=== PATIENT | male | born 1945 | race Caucasian/White ===

== ENCOUNTER 2021-03-22 12:07 | Emergency (ER) | payer OTHER, MEDICAID, SELFPAY ==
--- NOTE | ~2021-03-22 | CT_ITS ---
EXAMINATION: CT BRAIN, CT CERVICAL SPINE AND CT FACIAL BONES CLINICAL INFORMATION: Fall with head injury on Eliquis. COMPARISON: None TECHNIQUE: 5 mm thin axial and reformatted 2 mm thin sagittal coronal images of brain were obtained without contrast. Axial 3 mm thin and reformatted 2 millimeter thin coronal and sagittal images of cervical spine were obtained. Lastly axial 1.5 minutes thin and reformatted 1.5 minutes thin sagittal and coronal images of facial bones were obtained. [facility] 2020 FINDINGS: Brain: There is no acute intra-axial, extra-axial bleed, masses or midline shift. There is no acute infarction evolution. There is no edema. The lateral ventricles are symmetrical in size and configuration without enlargement. Bone windows reveal no calvarial abnormality. There is a right frontal scalp contusion. Bilateral paranasal sinuses and mastoid air cells are well-aerated. Cervical spine: There is mild straightening of cervical lordosis. The vertebral heights and alignment is normal. There is loss of disc height with ventral and posterior spondylosis throughout cervical spine. The craniovertebral junction and the C1-C2 alignment is normal. Is no acute fracture, dislocation or subluxation seen. The lung apices are clear. The prevertebral and the paravertebral soft tissues are normal. Facial bones: The exam is limited secondary to patient motion. There is mucoperiosteal thickening right maxillary sinus. Rest the paranasal sinuses are well-aerated. The ostiomeatal complex and frontoethmoidal recesses are patent. No visible maxillofacial or nasal bone fracture seen however limited due to motion. Mild degenerative changes involving left hip joint is noted. The right TM joint is unremarkable. No mandibular fractures are identified. The maxillofacial, nasal soft tissues are normal. Bilateral optic globes, optic nerve, lamina papyracea and the cribriform plate are intact. The bony sinus enamorado are intact. CT/CT cervical spine wo con IMPRESSION: No acute intracranial process seen. No maxillofacial, nasal or mandibular fractures seen however limited due to patient motion. Chronic right maxillary sinus inflammatory changes. There is no acute fracture, dislocation or subluxation cervical spine. There are degenerative disc changes with spondylosis virtually at every disc level. No visible acute fracture, dislocation or subluxation seen.
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
--- NOTE | ~2021-03-22 | CT_ITS ---
EXAMINATION: CT BRAIN, CT CERVICAL SPINE AND CT FACIAL BONES CLINICAL INFORMATION: Fall with head injury on Eliquis. COMPARISON: None TECHNIQUE: 5 mm thin axial and reformatted 2 mm thin sagittal coronal images of brain were obtained without contrast. Axial 3 mm thin and reformatted 2 millimeter thin coronal and sagittal images of cervical spine were obtained. Lastly axial 1.5 minutes thin and reformatted 1.5 minutes thin sagittal and coronal images of facial bones were obtained. [facility] 2020 FINDINGS: Brain: There is no acute intra-axial, extra-axial bleed, masses or midline shift. There is no acute infarction evolution. There is no edema. The lateral ventricles are symmetrical in size and configuration without enlargement. Bone windows reveal no calvarial abnormality. There is a right frontal scalp contusion. Bilateral paranasal sinuses and mastoid air cells are well-aerated. Cervical spine: There is mild straightening of cervical lordosis. The vertebral heights and alignment is normal. There is loss of disc height with ventral and posterior spondylosis throughout cervical spine. The craniovertebral junction and the C1-C2 alignment is normal. Is no acute fracture, dislocation or subluxation seen. The lung apices are clear. The prevertebral and the paravertebral soft tissues are normal. Facial bones: The exam is limited secondary to patient motion. There is mucoperiosteal thickening right maxillary sinus. Rest the paranasal sinuses are well-aerated. The ostiomeatal complex and frontoethmoidal recesses are patent. No visible maxillofacial or nasal bone fracture seen however limited due to motion. Mild degenerative changes involving left hip joint is noted. The right TM joint is unremarkable. No mandibular fractures are identified. The maxillofacial, nasal soft tissues are normal. Bilateral optic globes, optic nerve, lamina papyracea and the cribriform plate are intact. The bony sinus enamorado are intact. CT/CT facial bones wo con IMPRESSION: No acute intracranial process seen. No maxillofacial, nasal or mandibular fractures seen however limited due to patient motion. Chronic right maxillary sinus inflammatory changes. There is no acute fracture, dislocation or subluxation cervical spine. There are degenerative disc changes with spondylosis virtually at every disc level. No visible acute fracture, dislocation or subluxation seen.
[2021-03-22 12:16] VITALS: BP 132/47; BP 140/60; PULSE 60; PULSE 68; RESP 18; TEMP 36.6; O2SAT 95; O2SAT 98; BMI 33.1
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
[2021-03-22 14:09] LABS: MANUAL DIFF FLAG NO
[2021-03-22 14:10] LABS: Basophils Absolute Auto 0.1 X10*3/uL (0.0-0.2); Basophils Percent Auto 0.6 % (0-2); Eosinophils Absolute Auto 0.1 X10*3/uL (0.0-0.4); Eosinophils Percent Auto 1.1 % (0-4); Hematocrit 38.2 % (42.0-52.0); Imm Gran Abs Auto 0.03 X10*3/uL (0.00-0.03); Imm Gran Pct Auto 0.3 % (0.0-0.4); Lymphocytes Absolute Auto 1.4 X10*3/uL (1.2-4.9); Mean Corpuscular HGB Conc 31.4 g/dl (31.0-36.0); Mean Corpuscular Hemoglobin 27.2 pg (27.0-33.0); Mean Corpuscular Volume 86.6 fL (80.0-98.0); Mean Platelet Volume 9.4 fL (9.4-12.4); Monocytes Absolute Auto 0.6 X10*3/uL (0.1-1.2); Monocytes Percent Auto 5.8 % (2-11); Neutrophils Absolute Auto 8.8 x10*3/uL (2.0-8.3); Neutrophils Percent Auto 79.2 % (45-73); Platelet Count 227 X10*3/uL (160-400); Red Blood Count 4.41 X10*6/uL (4.60-5.80)
[2021-03-22 14:15] LABS: INTERNATIONAL NORM RATIO 1.6 (0.9-1.1); Prothrombin Time 18.5 SEC (9.9-13.0)
[2021-03-22 14:18] LABS: Partial Thromboplastin Time 41.4 SEC (24.1-38.0)
[2021-03-22 14:57] VITALS: BP 126/84; PULSE 77; RESP 18; TEMP 35.3; O2SAT 96
== END 2021-03-22 16:01 | disposition home or self-care (01) ==
PROVIDERS: Physician Assistant Medical; Emergency Provider Emergency Medicine; PCP Family Medicine
DX: S09.90XA Unspecified injury of head, initial encounter (principal); G44.309 Post-traumatic headache, unspecified, not intractable; R29.700 NIHSS score 0; M54.2 Cervicalgia; W05.0XXA Fall from non-moving wheelchair, initial encounter; Y93.9 Activity, unspecified; Y92.122 Bedroom in nursing home as the place of occurrence of the external cause; Y99.9 Unspecified external cause status; Z79.4 Long term (current) use of insulin; Z79.899 Other long term (current) drug therapy
CPT/HCPCS: 36415; 70450; 70486; 72125; 85025; 85610; 85730; 99284

== ENCOUNTER 2021-04-20 19:19 | Emergency (ER) | payer OTHER, MEDICAID, SELFPAY ==
[2021-04-20 19:13] VITALS: BP 126/84; PULSE 80; RESP 15; TEMP 37; O2SAT 98; BMI 43.0
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
[2021-04-20 19:29] VITALS: BP 128/72; PULSE 70; O2SAT 97
[2021-04-20 19:36] VITALS: BP 113/42; PULSE 65; RESP 18; TEMP 37; O2SAT 97; BMI 38.9
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
== END 2021-04-20 23:44 | disposition home or self-care (01) ==
PROVIDERS: Emergency Provider Emergency Medicine
DX: F03.90 Unspecified dementia, unspecified severity, without behavioral disturbance, psychotic disturbance, mood disturbance, and anxiety (principal); T14.90XA Injury, unspecified, initial encounter; Y04.2XXA Assault by strike against or bumped into by another person, initial encounter; Y93.9 Activity, unspecified; Y92.099 Unspecified place in other non-institutional residence as the place of occurrence of the external cause; Y99.9 Unspecified external cause status
CPT/HCPCS: 99283

== ENCOUNTER 2022-12-29 22:02 | Inpatient (IN) | payer OTHER, MEDICAID, SELFPAY ==
--- NOTE | 2022-12-29 | ECG_ITS ---
Test Reason : CHEST PAIN Blood Pressure : / mmHG Vent. Rate : 070 BPM Atrial Rate : 070 BPM P-R Int : 190 ms QRS Dur : 100 ms QT Int : 396 ms P-R-T Axes : 053 -06 013 degrees QTc Int : 427 ms Sinus rhythm with occasional Premature ventricular complexes Low voltage QRS Abnormal ECG When compared with ECG of 11-JUL-2017 10:56, Premature ventricular complexes are now Present QRS axis Shifted left Nonspecific T wave abnormality no longer evident in Anterolateral leads Referred By: Generic ED Physician Electronically Signed By:ANA GIRON MD
--- NOTE | ~2022-12-29 | CT_ITS ---
EXAMINATION: CT ABDOMEN AND PELVIS WITHOUT CONTRAST CLINICAL INFORMATION: Pancreatic mass COMPARISON: None available. TECHNIQUE: Multidetector volumetric imaging was performed from the superior aspect of the liver through the pubic symphysis. Sagittal and coronal reformatted images were obtained on the technologist's workstation. This CT examination was performed using dose optimization techniques as appropriate, variously including the following: *Automated exposure control *Adjustment of mA and/or kV according to patient size (this includes techniques or standardized protocols for targeted exams where dose is matched to indication/reason for exam; i.e. extremities or head) *Use of iterative reconstruction technique DLP: 801 mGy-cm FINDINGS: Suboptimal assessment in some regions due to motion artifact. LUNG BASES: Partial visualization of patchy consolidation in the lingula. LIVER, GALLBLADDER, AND BILIARY TREE: Suboptimally assessed without intravenous contrast. There is heterogeneous, masslike enlargement of much of the right hepatic lobe and caudate measuring up to approximately 16 cm in the axial plane. Gallbladder is physiologically distended with gallstones noted. PANCREAS: Grossly unremarkable. SPLEEN: Mildly enlarged. ADRENAL GLANDS: Right adrenal gland is unremarkable. There is diffuse enlargement of the left adrenal gland measuring less than 10 Hounsfield units. Adrenal nodules of any size exhibiting a CT density of =<10 HU are overwhelmingly likely to represent lipid rich benign adenomas for which no followup imaging is recommended. KIDNEYS AND URETERS: No hydronephrosis or obstructing calculi bilaterally. Several bilateral renal cysts; no follow-up recommended. Nonspecific bilateral perinephric stranding. BLADDER: Collapsed and not adequately evaluated. GASTROINTESTINAL TRACT: No evidence of bowel obstruction or significant wall thickening. Colonic diverticulosis is noted. No free fluid or free air is seen. ABDOMINAL WALL: No significant hernia is appreciated. LYMPH NODES: Normal. VASCULAR: Moderate atherosclerotic calcification. PELVIC VISCERA: Unremarkable. OSSEOUS STRUCTURES: Multilevel degenerative changes in the spine. CT/CT abdomen pelvis wo IV con IMPRESSION: 1. Heterogeneous, masslike enlargement of much of the right hepatic lobe and caudate lobe, suspicious for neoplasm. Further workup with dynamic liver MRI is recommended. 2. Partial visualization of patchy consolidation in the lingula, which could reflect pneumonia in the proper clinical setting. 3. Cholelithiasis.
--- NOTE | ~2022-12-29 | XR_ITS ---
EXAMINATION: XR CHEST CLINICAL INFORMATION: Shortness of breath COMPARISON: 07/11/2017 TECHNIQUE: Frontal view of the chest was obtained. FINDINGS: The lungs are hypoinflated which limits evaluation. Mild bibasilar opacities are suspected in this setting along the bronchovascular crowding. No evidence of pneumothorax or definite pleural effusion. The cardiomediastinal silhouette is stable. Calcification is present at the aortic arch. No acute osseous findings are seen. XR/XR chest 1V IMPRESSION: Low lung volumes with suspected mild bibasilar opacities which may represent atelectasis versus developing consolidation along the bronchovascular crowding.
[2022-12-29 22:05] VITALS: BP 96/38; PULSE 73; O2SAT 100; BMI 31.0
[2022-12-29 22:15] VITALS: BP 104/46; PULSE 66; RESP 20; TEMP 36.6; O2SAT 99
--- NOTE | 2022-12-29 22:23 | ED_ITS ---
HPI - Altered Mental Status General Chief Complaint: Altered Mental Status Stated Complaint: AMS FROM SNF Time Seen by Provider: 12/29/22 22:09 Source: EMS and RN notes reviewed Mode of arrival: EMS Limitations: altered mental status History of Present Illness HPI narrative: Patients with history of significant dementia brought by EMS for episode of unresponsiveness patient was in bed became unresponsive blood pressure was low was 72/56 pulse rate 111 saturating 83% on room air 88 on 2 L temperature 98.6 degrees per RN patient had poor p.o. intake and not taking drinking enough fluids feeling very weak urine sample just collected prior to arrival was cloudy. During the episode of unresponsive the patient was profusely sweating and difficult to arouse blood sugar was 366 when arrived patient complain of chest pain but at this time on evaluation denies any pain no recent fall no cough or fever Related Data Allergies Allergy/AdvReac Type Severity Reaction Status Date / Time No Known Allergies Allergy Unverified 10/25/19 19:30 [No Known Allergies*] Review of Systems 2 Review of Systems: Yes all other systems are reviewed and are negative FOR[facility]LY [facility] Past Medical History Medical History (Updated 12/30/22 @ 01:49 by Gilmer Tillman MD) Hypertension Iron deficiency anemia CKD (chronic kidney disease) Obstructive sleep apnea Dementia Social History Alcohol intake: never Patient Tobacco Use Status: Never used Tobacco Advance Directives: Yes Advance Directives on File: Yes Advance Directives Date on File: 03/23/21 Nutrition Risks: No Nutritional Risk Physical Exam ED Vital Signs: Vital Signs - 24 hr 12/29/22 22:15 12/29/22 22:54 12/29/22 23:55 Temperature 97.9 F 97.6 F 98.7 F Pulse Rate 66 70 72 Respiratory Rate 20 17 Blood Pressure 104/46 L 106/53 L 107/39 L Pulse Oximetry 99 95 96 Oxygen Delivery Method Non-Rebreather Mask Room Air Room Air BMI result Body Mass Index 31.0 Appearance: Alert. And awakex 1-2. No acute distress. Eyes: PERRLA, No Nystagmus ENT: Pharynx normal. Oral Mucosa moist Neck: Normal inspection. Neck supple. CVS: Normal heart rate and rhythm. Pulses normal. Respiratory: No respiratory distress. Equal air entry bilateral, no wheezing/rales/rhonchi Abdomen: Soft and nontender. Bowel sounds are present, no mass palpable, no CVA tenderness Skin: Skin warm and dry. Normal skin color. Normal skin turgor. Extremities: No lower extremity edema. No calf tenderness Neuro: Oriented X 1-2. Moving all 4 extremities Medications Administered Generic Name Dose Route Start Last Admin Trade Name Freq PRN Reason Stop Dose Admin Piperacillin Sod/Tazobactam 50 mls @ 100 mls/hr 12/30/22 00:15 12/30/22 01:21 Sod 3.375 gm/ Sodium Chloride IV Infused 0000,0600,1200,1800 [place] Infusion Discontinued Medications Generic Name Dose Route Start Last Admin Trade Name Freq PRN Reason Stop Dose Admin Sodium Chloride 1,000 mls @ 999 mls/hr 12/29/22 22:14 12/29/22 23:25 Ns IV 12/29/22 23:14 Infused .Q1H1M ONE Infusion Ceftriaxone Sodium 1 gm/ 50 mls @ 100 mls/hr 12/29/22 23:02 12/30/22 00:38 Sodium Chloride IV 12/29/22 23:31 Infused ONCE ONE Infusion Lactated Ringer's 500 mls @ 999 mls/hr 12/30/22 00:30 12/30/22 02:18 Lr IV 12/30/22 01:30 Infused .Q31M [place] Infusion Vancomycin HCl 2,000 mg in 500 mls @ 250 mls/hr 12/30/22 00:30 12/30/22 01:12 Vancomycin/Ns IV 12/30/22 02:29 250 mls/hr ONCE ONE Administration Protocol Medical Decision Making Medical Decision Making MDM Narrative: Patients with history of significant dementia brought by EMS for episode of unresponsiveness patient was in bed became unresponsive blood pressure was low was 72/56 pulse rate 111 saturating 83% on room air 88 on 2 L temperature 98.6 degrees per RN patient had poor p.o. intake and not taking drinking enough fluids feeling very weak urine sample just collected prior to arrival was cloudy. Workup showed elevated WBC count to 21,000 with left shift with hemoglobin of 9 elevated liver function tests with elevated alkaline phosphatase elevated BUN creatinine and lactic acid level lipase was also elevated patient did not have any significant palpable tenderness in the abdomen does have UTI CT scan of the abdomen showed hepatic mass about 16 cm will admit the patient for further evaluation workup patient DNR DNI vitals are stable at this time patient meeting the criteria for sepsis was given IV fluids and antibiotics Differential Diagnosis Differential Diagnoses: The differential diagnosis associated with the presentation includes Pneumonia/CHF/pancreatic cancer/pancreatitis/hepatic cancer/COVID/GAMA/UTI Admission/Observation Consideration of admission/observation: Escalation of care including admission/observation considered Consult Healthcare Provider Management of the patient was discussed with: Hospitalist Lab Data MDM Lab Attestation statement: I reviewed the patient's lab results. 12/29/22 22:23 12/29/22 22:23 Labs: Lab Results 12/29/22 12/29/22 12/29/22 Range/Units 22:23 22:36 22:52 WBC 21.4 H (4.8-10.8) X10*3/uL RBC 3.30 L D (4.60-5.80) X10*6/uL Hgb 9.0 L D (14.0-18.0) g/dl Hct 28.1 L D (42.0-52.0) % MCV 85.2 (80.0-98.0) fL MCH 27.3 (27.0-33.0) pg MCHC 32.0 (31.0-36.0) g/dl RDW 16.9 H (11.0-16.0) % Plt Count 207 (160-400) X10*3/uL MPV 10.2 (9.4-12.4) fL Immature Gran % (Auto) 1.0 H (0.0-0.4) % Neut % (Auto) 94.9 H (45-73) % Lymph % (Auto) 0.9 L (20-40) % [place] % (Auto) 3.1 (2-11) % Eos % (Auto) 0.0 (0-4) % Baso % (Auto) 0.1 (0-2) % Lymph # (Auto) 0.2 L (1.2-4.9) X10*3/uL [place] # (Auto) 0.7 (0.1-1.2) X10*3/uL Eos # (Auto) 0.0 (0.0-0.4) X10*3/uL Baso # (Auto) 0.0 (0.0-0.2) X10*3/uL Abs Immat Gran (auto) 0.21 H (0.00-0.03) X10*3/uL Absolute Neuts (auto) 20.4 H (2.0-8.3) x10*3/uL Absolute Nucleated RBC 0.000 (0.0-0.012) X10*3/uL Nucleated RBC % (auto) 0.0 (0.0-0.2) /100WBC Smear Tech's Comments VERIFIED D-Dimer High Sensitivty 849 NG/ML Sodium 140 (135-145) mmol/L Potassium 4.8 (3.3-5.1) mmol/L Chloride 104 (96-108) mmol/L Carbon Dioxide 23 (22-29) mmol/L Anion Gap 18 (12-20) BUN 61 H (9-16) mg/dL Creatinine 2.93 H (0.5-1.4) mg/dL Estim Creat Clear Calc 23.2 Estimated GFR 21 Random Glucose 329 H (60-115) mg/dL Lactic Acid 2.1 H* (0.5-2.0) mmol/L Calcium 9.6 (8.4-10.2) mg/dL Total Bilirubin 3.1 H (0.0-1.0) mg/dL AST 206 H (5-37) U/L ALT 99 H (0-40) U/L Alkaline Phosphatase 911 H (39-117) U/L Troponin I High Sens 27.6 (<3.5-35.0) ng/L B-Natriuretic Peptide 644 H (<100) pg/mL Total Protein 7.1 (6.5-8.0) g/dL Albumin 3.5 (3.5-5.0) g/dL Lipase 318 H (8-78) U/L Urine Color Yellow Urine Appearance Turbid Urine pH 6.0 (5.0-9.0) Ur Specific Boss 1.025 (1.005-1.025) Urine Protein 300 (3+) H (Neg-Trace) mg/dL Urine Glucose (UA) 100 H (Negative) mg/dL Urine Ketones Trace (Negative) mg/dL Urine Blood Moderate (2+) H (Negative) Urine Nitrite Positive H (Negative) Ur Leukocyte Esterase Large (3+) H (Negative) Urine RBC 11-20 H (0-2) /HPF Urine WBC >50 (0-5) /HPF Ur Squamous Epith Cells 3-5 (0-2) /HPF Urine Bacteria 4+ (None Seen) Hyaline Casts 3-5 (0-2) /LPF Independent Interpretation I performed an independent interpretation of an: EKG and CT Scan Interpretation: Normal sinus rhythm heart rate 70 beats per minute with occasional PVCs Q-waves in inferior leads no acute ST-T changes no acute ischemia Radiology Impression Discussion of test interpretation with radiology: I have reviewed the radiologist's reading. Radiologist Impression: [address] [address] [address] Scan Report Signed Patient: Meng Chilel MR#: [id number] : 1945 Acct:[id number] Age/Sex: 77 / M ADM Date: 12/30/22 [facility]: Willam Jensen MD Ordering Physician: Gilmer Tillman MD Date of Service: 12/29/22 Procedure(s): CT abdomen pelvis wo IV con Accession Number(s): [id number] cc: Physician,Unknown ; Gilmer Tillman MD~ EXAMINATION: CT ABDOMEN AND PELVIS WITHOUT CONTRAST CLINICAL INFORMATION: Pancreatic mass COMPARISON: None available. TECHNIQUE: Multidetector volumetric imaging was performed from the superior aspect of the liver through the pubic symphysis. Sagittal and coronal reformatted images were obtained on the technologist's workstation. This CT examination was performed using dose optimization techniques as appropriate, variously including the following: *Automated exposure control *Adjustment of mA and/or kV according to patient size (this includes techniques or standardized protocols for targeted exams where dose is matched to indication/reason for exam; i.e. extremities or head) *Use of iterative reconstruction technique DLP: 801 mGy-cm FINDINGS: Suboptimal assessment in some regions due to motion artifact. LUNG BASES: Partial visualization of patchy consolidation in the lingula. LIVER, GALLBLADDER, AND BILIARY TREE: Suboptimally assessed without intravenous contrast. There is heterogeneous, masslike enlargement of much of the right hepatic lobe and caudate measuring up to approximately 16 cm in the axial plane. Gallbladder is physiologically distended with gallstones noted. PANCREAS: Grossly unremarkable. SPLEEN: Mildly enlarged. ADRENAL GLANDS: Right adrenal gland is unremarkable. There is diffuse enlargement of the left adrenal gland measuring less than 10 Hounsfield units. Adrenal nodules of any size exhibiting a CT density of =<10 HU are overwhelmingly likely to represent lipid rich benign adenomas for which no followup imaging is recommended. KIDNEYS AND URETERS: No hydronephrosis or obstructing calculi bilaterally. Several bilateral renal cysts; no follow-up recommended. Nonspecific bilateral perinephric stranding. BLADDER: Collapsed and not adequately evaluated. GASTROINTESTINAL TRACT: No evidence of bowel obstruction or significant wall thickening. Colonic diverticulosis is noted. No free fluid or free air is seen. ABDOMINAL WALL: No significant hernia is appreciated. LYMPH NODES: Normal. VASCULAR: Moderate atherosclerotic calcification. PELVIC VISCERA: Unremarkable. OSSEOUS STRUCTURES: Multilevel degenerative changes in the spine. CT/CT abdomen pelvis wo IV con IMPRESSION: 1. Heterogeneous, masslike enlargement of much of the right hepatic lobe and caudate lobe, suspicious for neoplasm. Further workup with dynamic liver MRI is recommended. 2. Partial visualization of patchy consolidation in the lingula, which could reflect pneumonia in the proper clinical setting. 3. Cholelithiasis. Critical Care Time Critical Care Time Critical Care Time: Yes Total Critical Care Time: 55 Attestation: The patient was critically ill with a high probability of imminent or life threatening deterioration. I spent greater than 60 minutes of discontinuous time evaluating the patient,delivering critical care at the bedside, discussing and evaluating pertinent data with consultants. Critical care time does not include time spent performing separately billable procedures or teaching. Total time spent performing critical care was 55 minutes. Discharge Plan Discharge Clinical Impression: Altered mental status, Sepsis, Acute renal failure superimposed on chronic kidney disease, Hepatic cancer, Acute UTI Patient Disposition: Admitted As Inpatient Interventions: Admission Worksheet (ED) Last Done: 12/30/22 02:18 Discharge Date/Time: 12/30/22 02:29
[2022-12-29 22:28] LABS: Basophils Percent Auto 0.1 % (0-2); Hematocrit 28.1 % (42.0-52.0); Imm Gran Abs Auto 0.21 X10*3/uL (0.00-0.03); Lymphocytes Absolute Auto 0.2 X10*3/uL (1.2-4.9); Lymphocytes Percent Auto 0.9 % (20-40); MANUAL DIFF FLAG SCAN; Mean Corpuscular Hemoglobin 27.3 pg (27.0-33.0); Mean Corpuscular Volume 85.2 fL (80.0-98.0); Mean Platelet Volume 10.2 fL (9.4-12.4); Monocytes Absolute Auto 0.7 X10*3/uL (0.1-1.2); Monocytes Percent Auto 3.1 % (2-11); Neutrophils Absolute Auto 20.4 x10*3/uL (2.0-8.3); Neutrophils Percent Auto 94.9 % (45-73); Platelet Count 207 X10*3/uL (160-400); Red Cell Distribution Width 16.9 % (11.0-16.0); SCAN SMEAR FLAG 1; White Blood Count 21.4 X10*3/uL (4.8-10.8)
[2022-12-29] MEDS: 0.9 % Sodium Chloride 1,000 ML 999 ML IV (22:30)
[2022-12-29 22:43] LABS: Alanine Aminotransferase 99 U/L (0-40); Albumin Level 3.5 g/dL (3.5-5.0); Alkaline Phosphatase 911 U/L (39-117); Anion Gap 18 (12-20); Aspartate Amino Transferase 206 U/L (5-37); Bilirubin Total 3.1 mg/dL (0.0-1.0); Blood Urea Nitrogen 61 mg/dL (9-16); Calcium 9.6 mg/dL (8.4-10.2); Carbon Dioxide 23 mmol/L (22-29); Chloride 104 mmol/L (96-108); Creatinine Clr Calc Pharmacy 23.2; Estimated Glomerular Filt Rate 21; Glucose Random 329 mg/dL (60-115); Potassium 4.8 mmol/L (3.3-5.1); Sodium 140 mmol/L (135-145); Total Protein 7.1 g/dL (6.5-8.0)
[2022-12-29 22:48] LABS: SLIDE REVIEW VERIFIED
[2022-12-29 22:49] LABS: B Type Natriuretic Peptide 644 pg/mL (<100); Troponin-I High Sensitivity 27.6 ng/L (<3.5-35.0)
[2022-12-29 22:50] LABS: D Dimer High Sensitivity 849 NG/ML
[2022-12-29 22:54] VITALS: BP 106/53; PULSE 70; TEMP 36.4; O2SAT 95
[2022-12-29 22:54] LABS: Lactic Acid 2.1 mmol/L (0.5-2.0)
[2022-12-29 23:06] LABS: Appearance Urine Turbid; Color Urine Yellow; Glucose Urine UA 100 mg/dL (Negative); Nitrite Urine Positive (Negative); Specific Gravity - Urine 1.025 (1.005-1.025); UMIC TRIGGER UACC YES; Urine Blood Moderate (2+) (Negative); Urine Ketones Trace mg/dL (Negative); Urine Protein 300 (3+) mg/dL (Neg-Trace)
[2022-12-29 23:07] LABS: Leukocyte Esterase Urine Large (3+) (Negative)
--- NOTE | 2022-12-29 23:24 | PC.NURSE ---
awaiting second set of cultures to be drawn to administer antibiotics
[2022-12-29 23:31] LABS: Bacteria Urine 4+ (None Seen); UACC Culture Trigger YES; WBC Urine >50 /HPF (0-5)
[2022-12-29] MEDS: cefTRIAXone sodium 1 GM in 0.9 % Sodium Chloride 50 ML IV (23:53)
[2022-12-29 23:55] VITALS: BP 107/39; PULSE 72; RESP 17; TEMP 37.1; O2SAT 96
[2022-12-30] VITALS (9 sets, daily range): BP systolic 87–131; BP diastolic 37–59; PULSE 55–116; RESP 16–178; TEMP 36.1–36.8; O2SAT 95–98
[2022-12-30 00:04] LABS: Lipase 318 U/L (8-78)
[2022-12-30] MEDS: Piperacillin Sodium/Tazobactam 3.375 GM in 0.9 % Sodium Chloride 50 ML IV ×4 (00:36→17:40)
[2022-12-30 00:40] LABS: Reflex Lactate? Lactic Acid Added
[2022-12-30] MEDS: Lactated Ringers 500 ML 999 ML IV ×2 (00:51→01:34)
[2022-12-30] MEDS: vancomycin/NS 2,000 MG/500 ML PLAST..BAG 250 MG IV (01:12)
[2022-12-30 01:39] LABS: ~Lactic Acid-LAB USE ONLY 2.7 mmol/L (0.5-2.0)
[2022-12-30 01:51] LABS: Cancel Lactic Acid Canceled
--- NOTE | 2022-12-30 02:22 | MHC.EDTECH ---
Patient has no belongings
--- NOTE | 2022-12-30 06:17 | P.HPHOSP_ITS ---
History of Present Illness Date of Service: 12/30/22 Chief Complaint: altered mental status this is a 77-year-old male past medical history of hypertension, CKD, history of GI bleed, iron deficiency anemia, obstructive sleep apnea, dementia, comes into the hospital from shelter with an episode of unresponsiveness. History is obtained mostly from ER physician as well as notes sent with the patient from the shelter according to the notes sent in with the patient patient was found to have a low BP of 72/56 with a heart rate of 111, satting 83% on room air. Been having poor p.o. intake, unable to ambulate, has become significantly weak. unable to obtain review of system from patient on arrival to the ED patient is hemodynamically stable with a slightly soft blood pressure Labs are significant for WBC count of 21.4, hemoglobin of 9.0, hematocrit 28.1, left shift, creatinine of 2.93, lactic acid of 2.1, AST of 2 6, ALT of 99, troponin of 27, BNP of 644, lipase of 318 with no previous for comparison UA is positive for nitrites, leukocyte Estrace, WBC as well as urine bacteria Abdominal pelvic CT shows heterogeneous masslike enlargement of much of the right hepatic lobe and caudate lobe of the liver suspicious for neoplasm as well as evidence of consolidation in the lung which could reflect pneumonia. Patient will be admitted for further management Review of Systems 2 Review of Systems: Yes all other systems are reviewed and are negative [facility] Medical History Hypertension Iron deficiency anemia CKD (chronic kidney disease) Obstructive sleep apnea Dementia Alcohol intake: never Patient Tobacco Use Status: Never used Tobacco Advance Directives: Yes Advance Directives on File: Yes Advance Directives Date on File: 03/23/21 Nutrition Risks: No Nutritional Risk Meds Allergies Allergy/AdvReac Type Severity Reaction Status Date / Time No Known Allergies Allergy Unverified 10/25/19 19:30 [No Known Allergies*] Active Medications: Current Medications Acetaminophen (Acetaminophen 325 Mg Tablet) 650 mg PO Q6H PRN PRN Reason: Pain, Mild (Pain Scale 1-3) Docusate Sodium (Docusate Sodium 100 Mg Capsule) 100 mg PO DAILY PRN PRN Reason: Constipation Heparin Sodium (Porcine) (Heparin Sodium,Porcine 5,000 Unit/Ml Vial) 5,000 unit SUBCUT Q12H [facility] Ceftriaxone Sodium 1 gm/ (Sodium Chloride) 50 mls @ 100 mls/hr IV Q24H [facility] Piperacillin Sod/Tazobactam (Sod 3.375 gm/ Sodium Chloride) 50 mls @ 100 mls/hr IV 0000,0600,1200,1800 [facility] Last Infusion: 12/30/22 01:21 Dose: Infused Ondansetron HCl (Ondansetron Hcl 4 Mg/2 Ml Vial) 4 mg IVPUSH Q8H PRN PRN Reason: Nausea and Vomiting Pharmacy Consult (Consult Rx Vancomycin Dosing) 1 each MISCELLANE DAILY PRN PRN Reason: Consult order Physical Exam 2 Vital Signs and Narrative: Vital Signs: Last Vital Signs Temp 97.0 F 12/30/22 02:56 Pulse 90 12/30/22 03:37 Resp 19 12/30/22 02:56 BP 91/47 L 12/30/22 03:04 Pulse Ox 96 12/30/22 02:56 O2 Del Method Room Air 12/30/22 02:56 BMI result Body Mass Index 31.0 Const: Other: patient is somnolent but arousable, does not answer questions appropriately, is not oriented to time or place General: no acute distress Eyes: General: appearance normal, both eyes and all related structures Resp: Effort & Inspection: normal respiratory effort Cardio: Rate: regular rate Rhythm: regular rhythm GI: Palpation (GI): Soft to palpation Auscultation: normal bowel sounds Skin: General skin exam: no rashes or lesions noted Extrem: General: Yes normal to inspection and Yes no pedal edema Results Labs 12/29/22 22:23 12/29/22 22:23 Labs: Laboratory Results - last 24 hr 12/29/22 12/29/22 12/29/22 22:23 22:36 22:52 MCV 85.2 MCH 27.3 MCHC 32.0 RDW 16.9 H Plt Count 207 MPV 10.2 Immature Gran % (Auto) 1.0 H Neut % (Auto) 94.9 H Lymph % (Auto) 0.9 L [place] % (Auto) 3.1 Eos % (Auto) 0.0 Baso % (Auto) 0.1 Lymph # (Auto) 0.2 L [place] # (Auto) 0.7 Eos # (Auto) 0.0 Baso # (Auto) 0.0 Abs Immat Gran (auto) 0.21 H Absolute Neuts (auto) 20.4 H Absolute Nucleated RBC 0.000 Nucleated RBC % (auto) 0.0 Smear Tech's Comments VERIFIED D-Dimer High Sensitivty 849 Anion Gap 18 Estim Creat Clear Calc 23.2 Estimated GFR 21 Random Glucose 329 H Lactic Acid 2.1 H* Lactic Acid F/U @ 2Hr Calcium 9.6 Total Bilirubin 3.1 H AST 206 H ALT 99 H Alkaline Phosphatase 911 H B-Natriuretic Peptide 644 H Total Protein 7.1 Albumin 3.5 Lipase 318 H Urine Color Yellow Urine Appearance Turbid Urine pH 6.0 Ur Specific [place] 1.025 Urine Protein 300 (3+) H Urine Glucose (UA) 100 H Urine Ketones Trace Urine Blood Moderate (2+) H Urine Nitrite Positive H Ur Leukocyte Esterase Large (3+) H Urine RBC 11-20 H Urine WBC >50 Ur Squamous Epith Cells 3-5 Urine Bacteria 4+ Hyaline Casts 3-5 12/30/22 01:04 MCV MCH MCHC RDW Plt Count MPV Immature Gran % (Auto) Neut % (Auto) Lymph % (Auto) [place] % (Auto) Eos % (Auto) Baso % (Auto) Lymph # (Auto) [place] # (Auto) Eos # (Auto) Baso # (Auto) Abs Immat Gran (auto) Absolute Neuts (auto) Absolute Nucleated RBC Nucleated RBC % (auto) Smear Tech's Comments D-Dimer High Sensitivty Anion Gap Estim Creat Clear Calc Estimated GFR Random Glucose Lactic Acid Lactic Acid F/U @ 2Hr 2.7 H* Calcium Total Bilirubin AST ALT Alkaline Phosphatase B-Natriuretic Peptide Total Protein Albumin Lipase Urine Color Urine Appearance Urine pH Ur Specific [place] Urine Protein Urine Glucose (UA) Urine Ketones Urine Blood Urine Nitrite Ur Leukocyte Esterase Urine RBC Urine WBC Ur Squamous Epith Cells Urine Bacteria Hyaline Casts Imaging Radiologist's Impressions: Impressions Chest X-Ray 12/29/22 22:35 IMPRESSION: Low lung volumes with suspected mild bibasilar opacities which may represent atelectasis versus developing consolidation along the bronchovascular crowding. Abdomen/Pelvis CT 12/29/22 23:39 IMPRESSION: 1. Heterogeneous, masslike enlargement of much of the right hepatic lobe and caudate lobe, suspicious for neoplasm. Further workup with dynamic liver MRI is recommended. 2. Partial visualization of patchy consolidation in the lingula, which could reflect pneumonia in the proper clinical setting. 3. Cholelithiasis. Assessment and Plan (1) Acute encephalopathy: Status: Acute (2) Acute UTI: Status: Acute (3) Sepsis: Qualifiers: Sepsis type: sepsis due to unspecified organism Sepsis acute organ dysfunction status: without acute organ dysfunction Qualified Code(s): A41.9 - Sepsis, unspecified organism Status: Acute (4) Hepatic cancer: Qualifiers: Liver malignancy type: hepatocellular carcinoma Qualified Code(s): C 22.0 - Liver cell carcinoma Status: Acute Plan this is a 77-year-old male with past medical history of CKD- unspecified, DILLON, history of GI bleed, hypertension, as well as dementia comes into the hospital from shelter with altered mental status and hypotension # acute encephalopathy - likely secondary to acute sepsis due to acute UTI - will treat with IV antibiotics, IV fluids - monitor mentation # sepsis - secondary to acute UTI versus pneumonia - has consolidation seen on the abdominal CT as well as a UTI - will treat with IV antibiotics - follow cultures # acute cystitis - positive UA - will treat with IV antibiotics - follow cultures # transaminitis - likely secondary to the liver mass seen on the CT of the abdomen - concerning for malignancy - GI consulted - follow LFTs # hepatic mass - malignant - GI consulted DVT prophylaxis: heparin subQ Given patient's encephalopathy as well as sepsis patient require minimum 2 nights inpatient hospital stay for management and monitoring Quality Stroke Does the patient have a stroke diagnosis?: No VTE Prior VTE?: No VTE Risk Level:: Medical - moderate - high VTE Device Contraindication: Treatment Not Indicated VTE Drug Contraindication: N/A - Med Ordered
[2022-12-30 06:29] LABS: Glucose, Whole Blood 161 mg/dL (60-115)
[2022-12-30 07:29] LABS: Basophils Percent Auto 0.2 % (0-2); Hematocrit 28.9 % (42.0-52.0); Imm Gran Abs Auto 0.11 X10*3/uL (0.00-0.03); Imm Gran Pct Auto 0.6 % (0.0-0.4); Lymphocytes Absolute Auto 0.5 X10*3/uL (1.2-4.9); Lymphocytes Percent Auto 2.6 % (20-40); MANUAL DIFF FLAG SCAN; Mean Corpuscular HGB Conc 31.1 g/dl (31.0-36.0); Mean Corpuscular Hemoglobin 27.5 pg (27.0-33.0); Mean Corpuscular Volume 88.4 fL (80.0-98.0); Mean Platelet Volume 10.8 fL (9.4-12.4); Monocytes Absolute Auto 0.5 X10*3/uL (0.1-1.2); Monocytes Percent Auto 2.8 % (2-11); Neutrophils Absolute Auto 17.2 x10*3/uL (2.0-8.3); Neutrophils Percent Auto 93.8 % (45-73); Platelet Count 201 X10*3/uL (160-400); Red Blood Count 3.27 X10*6/uL (4.60-5.80); Red Cell Distribution Width 17.2 % (11.0-16.0); SCAN SMEAR FLAG 1; White Blood Count 18.4 X10*3/uL (4.8-10.8)
[2022-12-30 07:46] LABS: Alanine Aminotransferase 106 U/L (0-40); Albumin Level 3.2 g/dL (3.5-5.0); Alkaline Phosphatase 759 U/L (39-117); Anion Gap 16 (12-20); Aspartate Amino Transferase 196 U/L (5-37); Bilirubin Total 2.9 mg/dL (0.0-1.0); Blood Urea Nitrogen 57 mg/dL (9-16); Calcium 9.2 mg/dL (8.4-10.2); Carbon Dioxide 23 mmol/L (22-29); Chloride 107 mmol/L (96-108); Creatinine Clr Calc Pharmacy 26.1; Estimated Glomerular Filt Rate 24; Glucose Random 180 mg/dL (60-115); Sodium 141 mmol/L (135-145); Total Protein 6.5 g/dL (6.5-8.0)
--- NOTE | 2022-12-30 07:53 | PC.NURSE ---
pt arrived to unit from ED with vancomycin infusing, infusion not completed. IV positional and became agitated and threatening to strike nurse. several attempts made for new IV insertion without success. aware.
--- NOTE | 2022-12-30 08:15 | PHA.MEDREC ---
Pharmacy Consult ? Medication Reconciliation Pharmacy has completed the medication reconciliation. Spoke to patient at bedside, he was very confused. I asked if I could name medications from claim history and every med he kept telling me no. Then said he takes what his doctor says and that they send him to him and he takes them. Did med rec based on recent claim history, fills are all consistent.
[2022-12-30 08:22] LABS: SLIDE REVIEW VERIFIED
[2022-12-30] MEDS: Heparin Sodium,Porcine 5,000 UNIT/ML VIAL 5000 UNIT SUBCUT ×2 (08:38→20:24)
[2022-12-30] MEDS: Lactated Ringers 1,000 ML 100 ML IVCONT (08:40)
--- NOTE | 2022-12-30 08:50 | PHA.PROG ---
Admission Date/Time: December 30, 2022 00:12 Indication: SEPSIS Weight in k.7 kg Adjusted body weight in K.54 [place] body weight in K.1 Obesity Dosing Indication % IBW: BMI 31.0 Serum Creatinine - Last 168 Hours 12/29/22 12/30/22 22: 07:06 Creatinine 2.93 H 2.61 H Estimated CrCl and GFR - Last 168 Hours 12/29/22 12/30/22 22: 07:06 Estim Creat Clear Calc 23.2 26.1 Estimated GFR 21 24 Vancomycin Loading Dose: 2000 MG Current Vancomycin Dosing Regimen: 500 Q24 Vancomycin Monitoring using AUC goal of 400 - 600 range with trough as surrogate marker: AUC 379 WITH TROUGH OF 13.5 Date and Time for next Vancomycin Level to be drawn: 12/31 @0600 Pharmacist Comments on Vancomycin Plan: LOAD OF 22.2 MG/KG GIVEN IN ED. PT IS OBESE, >65 YEARS OLD, AND HAS CKD WITH CURRENT SCR 2.61. PLAN AT THIS TIME TO MOVE CAUTIOUSLY AND CHECK VANCO LEVEL BEFORE NEXT DOSE THERE IS NOT ANY PLAN FOR DIALYSIS BUT RENAL FUNCTION COULD DECLINE WITH VANCO USE. Vancomycin dosing will take advantage of [employer] as a clinical decision support tool that uses Bayesian modeling to calculate individual patient's pharmacokinetic parameters and forecast the patient's drug concentration time course with the target goal AUC 24 range of 400 - 600 mg/L/hr.
--- NOTE | 2022-12-30 10:21 | MHC.CM.PN ---
Patient is here with Encephalopathy and AMS; CM spoke with /HCP/Lili @ [phone]. Patient lives at [facility] and he mostly uses a w/c for mobility. Returning to [facility] is the goal and CM has initiated and will follow for dc planning. Patient's PCP is through [facility]( did not have a specific name).
--- NOTE | 2022-12-30 10:45 | PM.EVENT ---
Event Note Date of Service: 12/30/22 Event Note: Seen and evaluated this morning still difficult to arouse continue treatment of infection Hold meds that might affect his mentation pending cultures IV Abx recurrent reorientation waiting GI eval for liver mass Time Spent With Patient Time: Total time managing care of this patient today ____ minutes.
--- NOTE | 2022-12-30 10:58 | P.CNGI_ITS ---
History of Present Illness Data of Consult Service Date: 12/30/22 Requesting physician: Willam Jensen Primary Care Provider: Unknown Physician HPI Reason for consult: liver mass 77-year-old male past medical history of hypertension, CKD, history of GI bleed, iron deficiency anemia, obstructive sleep apnea, dementia, who I am seeing for concern for liver mass. Minimal hx from patient, does not know why he is here, president name or year. Per chart he is at a nursng home and was found to be hypotensive and weak with poor PO intake He was thought to have UTI, with dirty UA and raised WCC with left shift. Imaging revealed heterogeneous masslike enlargement of much of the right hepatic lobe and caudate lobe of the liver suspicious for neoplasm as well concern for lung consolidation and pneumonia. Review of Systems 2 Review of Systems: Constitutional : No Weight loss, No Fever, No Chills ENT/Mouth : No sore throat, No Rhinorrhea Eyes: No Swelling, No Redness Cardiovascular : No Chest Pain, No SOB, No Edema Respiratory : No Cough, No Sputum, No Wheezing Gastrointestinal : see HPI Genitourinary : NO Dysuria, No Urinary Frequency, No Hematuria, No Urgency Musculoskeletal : No joint pain, No Myalgias, No Joint Swelling Skin : No Skin Lesions, No rash Neuro : No Weakness, No Numbness, No Dizziness, No Headache Psych : No Anxiety/Panic, No Depression Heme/Lymph: No Bruising, No Lymphadenopathy Endocrine : No Polyuria, No Polydipsia All other systems reviewed and are negative. [facility] Past Medical History Medical History Hypertension Iron deficiency anemia CKD (chronic kidney disease) Obstructive sleep apnea Dementia Family History Pertinent family history: unable to obtain Social History Alcohol intake: never Patient Tobacco Use Status: Never used Tobacco Currently Displaying Signs/Symptoms of Drug Intoxication Withdrawal: No Advance Directives: Yes Advance Directives on File: Yes Advance Directives Date on File: 03/23/21 Nutrition Risks: No Nutritional Risk service: Yes Meds Allergies Allergy/AdvReac Type Severity Reaction Status Date / Time No Known Allergies Allergy Unverified 10/25/19 19:30 [No Known Allergies*] Active Medications: Current Medications Acetaminophen (Acetaminophen 325 Mg Tablet) 650 mg PO Q6H PRN PRN Reason: Pain, Mild (Pain Scale 1-3) Buspirone HCl (Buspirone Hcl 10 Mg Tablet) 10 mg PO TID [facility] Docusate Sodium (Docusate Sodium 100 Mg Capsule) 100 mg PO DAILY PRN PRN Reason: Constipation Heparin Sodium (Porcine) (Heparin Sodium,Porcine 5,000 Unit/Ml Vial) 5,000 unit SUBCUT Q12H [facility] Last Admin: 12/30/22 08:38 Dose: 5,000 unit Piperacillin Sod/Tazobactam (Sod 3.375 gm/ Sodium Chloride) 50 mls @ 100 mls/hr IV 0000,0600,1200,1800 [facility] Last Infusion: 12/30/22 08:20 Dose: Infused Vancomycin HCl 500 mg/ Sodium (Chloride) 110 mls @ 110 mls/hr IV Q24H [facility] Levothyroxine Sodium (Levothyroxine Sodium 50 Mcg Tablet) 50 mcg PO DAILY@0600 [facility] Omeprazole (Omeprazole 20 Mg Capsule.Dr) 20 mg PO DAILY@0630 [facility] Ondansetron HCl (Ondansetron Hcl 4 Mg/2 Ml Vial) 4 mg IVPUSH Q8H PRN PRN Reason: Nausea and Vomiting Pharmacy Consult (Consult Rx Vancomycin Dosing) 1 each MISCELLANE DAILY PRN PRN Reason: Consult order Sertraline HCl (Sertraline Hcl 100 Mg Tablet) 100 mg PO DAILY [facility] Home Medications Medication Instructions Recorded Confirmed Last Taken Type amlodipine 2.5 mg tablet 2.5 mg PO DAILY 12/30/22 12/30/22 Unknown History buspirone 10 mg tablet 10 mg PO TID 12/30/22 12/30/22 Unknown History levothyroxine 50 mcg tablet 50 mcg PO DAILY 12/30/22 12/30/22 Unknown History omeprazole 20 mg capsule,delayed 20 mg PO DAILY 12/30/22 12/30/22 Unknown History release risperidone 0.25 mg tablet 0.25 mg PO DAILY 12/30/22 12/30/22 Unknown History risperidone 0.5 mg tablet 0.5 mg PO DAILY 12/30/22 12/30/22 Unknown History sertraline 100 mg tablet 100 mg PO DAILY 12/30/22 12/30/22 Unknown History trazodone 50 mg tablet 50 mg PO BEDTIME 12/30/22 12/30/22 Unknown History Physical Exam 2 Vital Signs: Vital Signs: Last Vital Signs Temp 97.1 F 12/30/22 07:38 Pulse 55 12/30/22 07:38 Resp 16 12/30/22 07:38 BP 115/41 L 12/30/22 07:38 Pulse Ox 95 12/30/22 07:38 O2 Del Method Room Air 12/30/22 07:38 BMI result Body Mass Index 31.0 EXAM: GENERAL: The patient is well developed and nontoxic. VITAL SIGNS:see workflow HEENT: Nonicteric sclerae, PERRLA, EOMI. Oropharynx clear. Moist mucous membranes. Conjunctivae appear pale. No thyroid mass. CHEST: Chest wall is nontender. HEART: Regular rate and rhythm without murmurs. LUNGS: Clear to auscultation bilaterally. ABDOMEN: Soft, positive bowel sounds, nontender, no organomegaly.no flank tenderness SKIN: No rash, no excessive bruising, petechiae, or purpura. NEUROLOGIC: Cranial nerves II-XII intact without motor/sensory deficit. Const: Orientation/consciousness: oriented to person Neuro: General: oriented to person Psych: Appearance: disheveled Insight: Limited insight present (Psych) Results Labs 12/30/22 07:06 12/30/22 07:06 Labs: Short CBC 12/29/22 12/30/22 Range/Units 22:23 07:06 WBC 21.4 H 18.4 H (4.8-10.8) X10*3/uL Hgb 9.0 L D 9.0 L (14.0-18.0) g/dl Hct 28.1 L D 28.9 L (42.0-52.0) % Plt Count 207 201 (160-400) X10*3/uL BMP 12/29/22 12/30/22 22:23 07:06 Sodium 140 141 Potassium 4.8 5.0 Chloride 104 107 Carbon Dioxide 23 23 BUN 61 H 57 H Creatinine 2.93 H 2.61 H Calcium 9.6 9.2 Liver Function 12/29/22 12/30/22 Range/Units 22:23 07:06 Total Bilirubin 3.1 H 2.9 H (0.0-1.0) mg/dL AST 206 H 196 H (5-37) U/L ALT 99 H 106 H (0-40) U/L Alkaline Phosphatase 911 H 759 H (39-117) U/L Albumin 3.5 3.2 L (3.5-5.0) g/dL Urine 12/29/22 Range/Units 22:52 Urine Color Yellow Urine Appearance Turbid Urine pH 6.0 (5.0-9.0) Ur Specific [place] 1.025 (1.005-1.025) Urine Protein 300 (3+) H (Neg-Trace) mg/dL Urine Glucose (UA) 100 H (Negative) mg/dL Imaging CT scan - abdomen: Attestation: I personally reviewed and interpreted this imaging study as follows: (liver mass, consolidation) Assessment and Plan (1) Liver mass: Status: Acute Plan 1/ Liver mass, uncertain etiology, patient baseline also not known, may have pneumonia and UTI as well PLAN: 1/ recommend MRI liver protocol--if unable to do then liver biopsy 2/ consider discussion with [facility] about goals of care Procedures Date of Service Date of Service: 12/30/22
[2022-12-30] MEDS: OLANZapine 10 MG VIAL 2.5 MG IM (15:07)
[2022-12-30] MEDS: busPIRone HCl 10 MG TABLET PO ×2 (15:31→20:23)
[2022-12-30] MEDS: Acetaminophen 325 MG TABLET 650 MG PO (20:23)
[2022-12-31] VITALS (7 sets, daily range): BP systolic 111–125; BP diastolic 38–60; PULSE 55–94; RESP 18–20; TEMP 36.1–36.7; O2SAT 94–98
[2022-12-31] MEDS: Piperacillin Sodium/Tazobactam 3.375 GM in 0.9 % Sodium Chloride 50 ML IV ×5 (00:05→23:51)
[2022-12-31] MEDS: Omeprazole 20 MG CAPSULE.DR PO (05:43)
[2022-12-31] MEDS: Levothyroxine Sodium 50 MCG TABLET PO (05:43)
[2022-12-31 08:45] LABS: Hematocrit 29.5 % (42.0-52.0); Hemoglobin 9.3 g/dl (14.0-18.0); Mean Corpuscular HGB Conc 31.5 g/dl (31.0-36.0); Mean Corpuscular Hemoglobin 27.4 pg (27.0-33.0); Mean Corpuscular Volume 86.8 fL (80.0-98.0); Mean Platelet Volume 11.5 fL (9.4-12.4); Platelet Count 214 X10*3/uL (160-400); Red Cell Distribution Width 17.4 % (11.0-16.0); White Blood Count 12.9 X10*3/uL (4.8-10.8)
[2022-12-31 09:00] LABS: Vancomycin Random 9.9 mcg/mL (15-20)
[2022-12-31 09:04] LABS: Alanine Aminotransferase 82 U/L (0-40); Albumin Level 3.2 g/dL (3.5-5.0); Alkaline Phosphatase 606 U/L (39-117); Anion Gap 16 (12-20); Aspartate Amino Transferase 108 U/L (5-37); Bilirubin Total 1.4 mg/dL (0.0-1.0); Blood Urea Nitrogen 54 mg/dL (9-16); Calcium 9.3 mg/dL (8.4-10.2); Carbon Dioxide 24 mmol/L (22-29); Chloride 107 mmol/L (96-108); Creatinine Clr Calc Pharmacy 30.5; Estimated Glomerular Filt Rate 29; Glucose Random 107 mg/dL (60-115); Potassium 4.2 mmol/L (3.3-5.1); Sodium 143 mmol/L (135-145); Total Protein 6.8 g/dL (6.5-8.0)
[2022-12-31] MEDS: vancomycin HCL 750 MG in 0.9 % Sodium Chloride 250 ML 265 MG IV (09:26)
--- NOTE | 2022-12-31 11:54 | MHC.CM.PN ---
EMR reviewed and per MD rounds pts is not medically cleared for D/C due to liver mass and pending MRI. IMM given 12/31. CM will continue to follow.
--- NOTE | 2022-12-31 14:42 | P.PNIM_ITS ---
Subjective Subjective Date of Service: 12/31/22 Interval History: Some confusion overnight with mild combativeness; otherwise no acute issues Review of Systems Denies chest pain Denies shortness of breath Denies nausea vomiting diarrhea Denies fever chills Physical Exam 2 Vital Signs: Vital Signs: Last Vital Signs Temp 97.1 F 12/31/22 11:32 Pulse 94 12/31/22 11:32 Resp 18 12/31/22 11:32 BP 125/60 12/31/22 11:32 Pulse Ox 95 12/31/22 11:32 O2 Del Method Room Air 12/31/22 11:32 BMI result Body Mass Index 31.0 Const: Other: No acute distress Resp: Other: Clear to auscultation bilaterally no rales rhonchi or wheezes Cardio: Other: No S4; positive S1-S2; no S3 murmurs rubs or gallops GI: Other: Soft nontender normoactive bowel sounds Extrem: Other: No edema bilaterally Objective Data Active Medications Acetaminophen (Acetaminophen 325 Mg Tablet) 650 mg PO Q6H PRN PRN Reason: Pain, Mild (Pain Scale 1-3) Last Admin: 12/30/22 20:23 Dose: 650 mg Documented By: AMY Buspirone HCl (Buspirone Hcl 10 Mg Tablet) 10 mg PO TID [facility] Last Admin: 12/31/22 08:50 Dose: Not Given Documented By: LUCHO Non-Admin Reason: Patient Refused Docusate Sodium (Docusate Sodium 100 Mg Capsule) 100 mg PO DAILY PRN PRN Reason: Constipation Heparin Sodium (Porcine) (Heparin Sodium,Porcine 5,000 Unit/Ml Vial) 5,000 unit SUBCUT Q12H [facility] Last Admin: 12/31/22 08:50 Dose: Not Given Documented By: LUCHO Non-Admin Reason: Patient Refused Piperacillin Sod/Tazobactam (Sod 3.375 gm/ Sodium Chloride) 50 mls @ 100 mls/hr IV 0000,0600,1200,1800 [facility] Last Admin: 12/31/22 12:13 Dose: 100 mls/hr Documented By: LUCHO Vancomycin HCl 750 mg/ Sodium (Chloride) 265 mls @ 265 mls/hr IV Q24H [facility] Last Infusion: 12/31/22 10:26 Dose: Infused Documented By: LUCHO Levothyroxine Sodium (Levothyroxine Sodium 50 Mcg Tablet) 50 mcg PO DAILY@0600 [facility] Last Admin: 12/31/22 05:43 Dose: 50 mcg Documented By: SOY Omeprazole (Omeprazole 20 Mg Capsule.) 20 mg PO DAILY@0630 [facility] Last Admin: 12/31/22 05:43 Dose: 20 mg Documented By: SOY Ondansetron HCl (Ondansetron Hcl 4 Mg/2 Ml Vial) 4 mg IVPUSH Q8H PRN PRN Reason: Nausea and Vomiting Pharmacy Consult (Consult Rx Vancomycin Dosing) 1 each MISCELLANE DAILY PRN PRN Reason: Consult order Sertraline HCl (Sertraline Hcl 100 Mg Tablet) 100 mg PO DAILY [facility] Last Admin: 12/31/22 08:50 Dose: Not Given Documented By: LUCHO Non-Admin Reason: Patient Refused Labs 12/31/22 07:54 12/31/22 07:54 Labs: Laboratory Results - last 24 hr 12/31/22 07:54 MCV 86.8 MCH 27.4 MCHC 31.5 RDW 17.4 H Plt Count 214 MPV 11.5 Absolute Nucleated RBC 0.000 Nucleated RBC % (auto) 0.0 Anion Gap 16 Estim Creat Clear Calc 30.5 Estimated GFR 29 Random Glucose 107 Calcium 9.3 Total Bilirubin 1.4 H Direct Bilirubin 1.0 H AST 108 H ALT 82 H Alkaline Phosphatase 606 H Total Protein 6.8 Albumin 3.2 L Hold Yellow Top See Note Random Vancomycin 9.9 L Microbiology Microbiology Results: Microbiology 12/29/22 23:51 Blood Culture - Preliminary Blood - Venous Gram negative kathryn 12/29/22 22:36 Blood Culture - Preliminary Blood - Venous Gram negative kathryn 12/29/22 Unknown Urine Culture - Final Urine Catheterized - Ace Catheter Assessment and Plan (1) Acute encephalopathy: Status: Acute (2) Liver mass: Status: Acute (3) Acute renal failure superimposed on chronic kidney disease: Status: Acute Plan 77-year-old male with past medical history of CKD- unspecified, DILLON, history of GI bleed, hypertension, as well as dementia comes [facility] hospital from [facility] with altered mental status and hypotension; found to have UTI along with new hepatic masses 1.Acute encephalopathy secondary to Gram-negative bacteremia -likely secondary to acute sepsis.... Resolving -Zosyn(2) -preliminary cultures with Gram-negative rods. .. Await formal identification 2.Sepsis -likely secondary to Gram-negative bacteremia -continue Zosyn; await formal culture identification 3.Transaminitis -slowly improving likely secondary to hepatic mass -GI recommends MRI of abdomen liver protocol however patient as ankle bracelet secondary to chronic dementia unit -discussed with facility; transfer patient back and they will remove bracelet and book outpatient MRI heparin subQ DNR DNI Requires ongoing hospitalization for IV antibiotics pending identification of Gram-negative bacteremia Quality Stroke Does the patient have a stroke diagnosis?: No VTE Prior VTE?: No VTE Risk Level:: Medical - moderate - high VTE Device Contraindication: Treatment Not Indicated VTE Drug Contraindication: N/A - Med Ordered
[2022-12-31] MEDS: busPIRone HCl 10 MG TABLET PO ×2 (15:48→21:29)
[2022-12-31] MEDS: Heparin Sodium,Porcine 5,000 UNIT/ML VIAL 5000 UNIT SUBCUT (21:29)
[2023-01-01 03:03] VITALS: BP 109/60; PULSE 70; RESP 18; TEMP 36.3; O2SAT 93
[2023-01-01] MEDS: Piperacillin Sodium/Tazobactam 3.375 GM in 0.9 % Sodium Chloride 50 ML IV ×2 (05:30→12:22)
[2023-01-01] MEDS: Levothyroxine Sodium 50 MCG TABLET PO (05:30)
[2023-01-01] MEDS: Omeprazole 20 MG CAPSULE.DR PO (05:30)
[2023-01-01 06:06] LABS: Creatinine Clr Calc Pharmacy 33.9; Estimated Glomerular Filt Rate 33
[2023-01-01 07:44] VITALS: BP 127/62; PULSE 67; RESP 16; TEMP 36.3; O2SAT 95
[2023-01-01] MEDS: Acetaminophen 325 MG TABLET 650 MG PO (09:16)
[2023-01-01] MEDS: busPIRone HCl 10 MG TABLET PO ×2 (09:17→15:09)
[2023-01-01] MEDS: Sertraline HCL 100 MG TABLET PO (09:17)
[2023-01-01] MEDS: Heparin Sodium,Porcine 5,000 UNIT/ML VIAL 5000 UNIT SUBCUT ×2 (09:17→19:44)
[2023-01-01] MEDS: vancomycin HCL 750 MG in 0.9 % Sodium Chloride 250 ML 265 MG IV (09:20)
[2023-01-01 11:40] VITALS: BP 100/50; PULSE 68; RESP 16; TEMP 36.2; O2SAT 98
--- NOTE | 2023-01-01 13:41 | HO.PM.IMPN ---
Subjective Subjective Date of Service: 01/01/23 Interval History: Overall improvement. Unable to do MRI secondary to ankle tracking bracelet secondary to dementia Review of Systems Denies chest pain Denies shortness of breath Denies nausea vomiting diarrhea Denies fever chills Physical Exam Vital Signs: Vital Signs: Last Vital Signs Temp 97.1 F 01/01/23 11:40 Pulse 68 01/01/23 11:40 Resp 16 01/01/23 11:40 BP 100/50 L 01/01/23 11:40 Pulse Ox 98 01/01/23 11:40 O2 Del Method Room Air 01/01/23 11:40 BMI result Body Mass Index 31.0 Const: Other: No acute distress Resp: Other: Clear to auscultation bilaterally no rales rhonchi or wheezes Cardio: Other: No S4; positive S1-S2; no S3 murmurs rubs or gallops GI: Other: Soft nontender normoactive bowel sounds Extrem: Other: No edema bilaterally Objective Data Active Medications Acetaminophen (Acetaminophen 325 Mg Tablet) 650 mg PO Q6H PRN PRN Reason: Pain, Mild (Pain Scale 1-3) Last Admin: 01/01/23 09:16 Dose: 650 mg Documented By: LUCHO Buspirone HCl (Buspirone Hcl 10 Mg Tablet) 10 mg PO TID [facility] Last Admin: 01/01/23 09:17 Dose: 10 mg Documented By: LUCHO Docusate Sodium (Docusate Sodium 100 Mg Capsule) 100 mg PO DAILY PRN PRN Reason: Constipation Heparin Sodium (Porcine) (Heparin Sodium,Porcine 5,000 Unit/Ml Vial) 5,000 unit SUBCUT Q12H [facility] Last Admin: 01/01/23 09:17 Dose: 5,000 unit Documented By: LUCHO Piperacillin Sod/Tazobactam (Sod 3.375 gm/ Sodium Chloride) 50 mls @ 100 mls/hr IV 0000,0600,1200,1800 [facility] Last Admin: 01/01/23 12:22 Dose: 100 mls/hr Documented By: LUCHO Vancomycin HCl 750 mg/ Sodium (Chloride) 265 mls @ 265 mls/hr IV Q24H [facility] Last Infusion: 01/01/23 10:20 Dose: Infused Documented By: LUCHO Levothyroxine Sodium (Levothyroxine Sodium 50 Mcg Tablet) 50 mcg PO DAILY@0600 [facility] Last Admin: 01/01/23 05:30 Dose: 50 mcg Documented By: MICHAEL Omeprazole (Omeprazole 20 Mg Capsule.) 20 mg PO DAILY@0630 [facility] Last Admin: 01/01/23 05:30 Dose: 20 mg Documented By: MICHAEL Ondansetron HCl (Ondansetron Hcl 4 Mg/2 Ml Vial) 4 mg IVPUSH Q8H PRN PRN Reason: Nausea and Vomiting Pharmacy Consult (Consult Rx Vancomycin Dosing) 1 each MISCELLANE DAILY PRN PRN Reason: Consult order Sertraline HCl (Sertraline Hcl 100 Mg Tablet) 100 mg PO DAILY [facility] Last Admin: 01/01/23 09:17 Dose: 100 mg Documented By: BELLNLYM Labs 12/31/22 07:54 01/01/23 05:28 Labs: Laboratory Results - last 24 hr 01/01/23 05:28 Hold Purple Top SEE NOTE Estim Creat Clear Calc 33.9 Estimated GFR 33 Microbiology Microbiology Results: Microbiology 12/29/22 23:51 Blood Culture - Final Blood - Venous Escherichia coli 12/29/22 22:36 Blood Culture - Final Blood - Venous Escherichia coli Assessment and Plan (1) Acute encephalopathy: Status: Acute (2) Liver mass: Status: Acute Plan 77-year-old male with past medical history of CKD- unspecified, DILLON, history of GI bleed, hypertension, as well as dementia comes into the hospital from [facility] with altered mental status and hypotension; found to have UTI along with new hepatic masses 1.Acute encephalopathy secondary to Gram-negative bacteremia -likely secondary to acute sepsis.... Resolving -Zosyn(3) -preliminary cultures with Gram-negative rods. .. E coli sensitive to ceftriaxone. Will adjust antibiotics 2.Sepsis -likely secondary to Gram-negative bacteremia -continue Zosyn; await formal culture identification 3.Transaminitis -slowly improving likely secondary to hepatic mass -GI recommends MRI of abdomen liver protocol however patient as ankle bracelet secondary to chronic dementia unit -discussed with facility; transfer patient back and they will remove bracelet and book outpatient MRI heparin subQ DNR DNI Requires ongoing hospitalization for IV antibiotics pending identification of Gram-negative bacteremia Quality Stroke Does the patient have a stroke diagnosis?: No VTE Prior VTE?: No VTE Risk Level:: Medical - moderate - high VTE Device Contraindication: Treatment Not Indicated VTE Drug Contraindication: N/A - Med Ordered
[2023-01-01] MEDS: cefTRIAXone sodium 1 GM in 0.9 % Sodium Chloride 50 ML IV (15:09)
[2023-01-01 15:17] VITALS: BP 115/49; PULSE 58; RESP 18; TEMP 36.2; O2SAT 93
--- NOTE | 2023-01-01 19:34 | PM.EVENT ---
Event Note Date of Service: 01/01/23 Event Note: Pt with UTI, encephalopathy reported by nursing staff to be combative, hitting staff, trying to get out of bed despite having sitter and multiple attempts at redirection. For patient and staff safety, 5mg IM Zyprexa ordered and administered. Time Spent With Patient Time: Total time managing care of this patient today ____ minutes.
[2023-01-01] MEDS: OLANZapine 10 MG VIAL 5 MG IM (19:45)
[2023-01-01 20:00] VITALS: BP 125/53; PULSE 61; RESP 18; TEMP 37; O2SAT 96
--- NOTE | 2023-01-01 22:00 | PC.NURSE ---
at shift change around 1930 pt became agitated and difficult to redirect. Pt became combative despite having sitter and would not agree to stay in bed. Pt tried to bite and hit staff. was notified and Zyprexa 5mg IM was ordered. Pt is now asleep and calm.
[2023-01-01 23:19] VITALS: BP 118/58; PULSE 66; RESP 18; TEMP 36.6; O2SAT 95
[2023-01-02 04:00] VITALS: BP 150/58; PULSE 60; RESP 18; TEMP 36.3; O2SAT 94
[2023-01-02] MEDS: Levothyroxine Sodium 50 MCG TABLET PO (04:56)
[2023-01-02] MEDS: Omeprazole 20 MG CAPSULE.DR PO (04:56)
[2023-01-02 07:23] LABS: MANUAL DIFF FLAG NO
[2023-01-02 07:39] LABS: Basophils Percent Auto 0.3 % (0-2); Eosinophils Absolute Auto 0.1 X10*3/uL (0.0-0.4); Hematocrit 26.7 % (42.0-52.0); Hemoglobin 8.4 g/dl (14.0-18.0); Imm Gran Abs Auto 0.12 X10*3/uL (0.00-0.03); Imm Gran Pct Auto 1.8 % (0.0-0.4); Lymphocytes Absolute Auto 0.7 X10*3/uL (1.2-4.9); Lymphocytes Percent Auto 10.6 % (20-40); Mean Corpuscular HGB Conc 31.5 g/dl (31.0-36.0); Mean Corpuscular Hemoglobin 27.3 pg (27.0-33.0); Mean Corpuscular Volume 86.7 fL (80.0-98.0); Mean Platelet Volume 10.8 fL (9.4-12.4); Monocytes Absolute Auto 0.4 X10*3/uL (0.1-1.2); Monocytes Percent Auto 6.7 % (2-11); Neutrophils Absolute Auto 5.1 x10*3/uL (2.0-8.3); Neutrophils Percent Auto 78.6 % (45-73); Platelet Count 174 X10*3/uL (160-400); Red Blood Count 3.08 X10*6/uL (4.60-5.80); Red Cell Distribution Width 17.4 % (11.0-16.0); White Blood Count 6.5 X10*3/uL (4.8-10.8)
[2023-01-02 07:55] LABS: Vancomycin Random 14.2 mcg/mL (15-20)
[2023-01-02 08:00] VITALS: BP 129/61; PULSE 71; RESP 20; TEMP 36.8; O2SAT 90
[2023-01-02 08:06] LABS: Alanine Aminotransferase 37 U/L (0-40); Albumin Level 2.8 g/dL (3.5-5.0); Alkaline Phosphatase 407 U/L (39-117); Anion Gap 13 (12-20); Aspartate Amino Transferase 41 U/L (5-37); Bilirubin Total 0.8 mg/dL (0.0-1.0); Blood Urea Nitrogen 45 mg/dL (9-16); Calcium 8.4 mg/dL (8.4-10.2); Carbon Dioxide 27 mmol/L (22-29); Chloride 107 mmol/L (96-108); Creatinine Clr Calc Pharmacy 34.9; Estimated Glomerular Filt Rate 34; Glucose Fasting 89 mg/dL (60-99); Potassium 3.6 mmol/L (3.3-5.1); Sodium 143 mmol/L (135-145); Total Protein 5.9 g/dL (6.5-8.0)
[2023-01-02] MEDS: busPIRone HCl 10 MG TABLET PO ×3 (09:05→19:54)
[2023-01-02] MEDS: Sertraline HCL 100 MG TABLET PO (09:05)
[2023-01-02] MEDS: Heparin Sodium,Porcine 5,000 UNIT/ML VIAL 5000 UNIT SUBCUT ×2 (09:05→19:54)
[2023-01-02 12:00] VITALS: BP 148/62; PULSE 63; RESP 20; TEMP 36.6; O2SAT 90
--- NOTE | 2023-01-02 12:43 | HO.PM.IMPN ---
Subjective Subjective Date of Service: 01/02/23 Interval History: Episode of combativeness overnight treated well with IM Zyprexa. No further episodes Review of Systems Denies chest pain Denies shortness of breath Denies nausea vomiting diarrhea Denies fever chills Physical Exam Vital Signs: Vital Signs: Last Vital Signs Temp 98 F 01/02/23 12:00 Pulse 63 01/02/23 12:00 Resp 20 01/02/23 12:00 BP 148/62 H 01/02/23 12:00 Pulse Ox 90 L 01/02/23 12:00 O2 Del Method Room Air 01/02/23 12:00 BMI result Body Mass Index 31.0 Const: Other: No acute distress Resp: Other: Clear to auscultation bilaterally no rales rhonchi or wheezes Cardio: Other: No S4; positive S1-S2; no S3 murmurs rubs or gallops GI: Other: Soft nontender normoactive bowel sounds Extrem: Other: No edema bilaterally Objective Data Active Medications Acetaminophen (Acetaminophen 325 Mg Tablet) 650 mg PO Q6H PRN PRN Reason: Pain, Mild (Pain Scale 1-3) Last Admin: 01/01/23 09:16 Dose: 650 mg Documented By: LUCHO Buspirone HCl (Buspirone Hcl 10 Mg Tablet) 10 mg PO TID [facility] Last Admin: 01/02/23 09:05 Dose: 10 mg Documented By: LUCHO Docusate Sodium (Docusate Sodium 100 Mg Capsule) 100 mg PO DAILY PRN PRN Reason: Constipation Heparin Sodium (Porcine) (Heparin Sodium,Porcine 5,000 Unit/Ml Vial) 5,000 unit SUBCUT Q12H [facility] Last Admin: 01/02/23 09:05 Dose: 5,000 unit Documented By: LUCHO Ceftriaxone Sodium 1 gm/ (Sodium Chloride) 50 mls @ 100 mls/hr IV Q24H [facility] Last Infusion: 01/01/23 15:40 Dose: Infused Documented By: LUCHO Levothyroxine Sodium (Levothyroxine Sodium 50 Mcg Tablet) 50 mcg PO DAILY@0600 [facility] Last Admin: 01/02/23 04:56 Dose: 50 mcg Documented By: HUNTER Omeprazole (Omeprazole 20 Mg Apollo.) 20 mg PO DAILY@0630 [facility] Last Admin: 01/02/23 04:56 Dose: 20 mg Documented By: HUNTER Ondansetron HCl (Ondansetron Hcl 4 Mg/2 Ml Vial) 4 mg IVPUSH Q8H PRN PRN Reason: Nausea and Vomiting Sertraline HCl (Sertraline Hcl 100 Mg Tablet) 100 mg PO DAILY [facility] Last Admin: 01/02/23 09:05 Dose: 100 mg Documented By: BALJITYM Labs 01/02/23 06:50 01/02/23 06:50 Labs: Laboratory Results - last 24 hr 01/02/23 06:50 MCV 86.7 MCH 27.3 MCHC 31.5 RDW 17.4 H Plt Count 174 MPV 10.8 Immature Gran % (Auto) 1.8 H Neut % (Auto) 78.6 H Lymph % (Auto) 10.6 L [place] % (Auto) 6.7 Eos % (Auto) 2.0 Baso % (Auto) 0.3 Lymph # (Auto) 0.7 L [place] # (Auto) 0.4 Eos # (Auto) 0.1 Baso # (Auto) 0.0 Abs Immat Gran (auto) 0.12 H Absolute Neuts (auto) 5.1 Absolute Nucleated RBC 0.000 Nucleated RBC % (auto) 0.0 Anion Gap 13 Estim Creat Clear Calc 34.9 Estimated GFR 34 Fasting Glucose 89 Calcium 8.4 D Total Bilirubin 0.8 AST 41 H ALT 37 Alkaline Phosphatase 407 H Total Protein 5.9 L Albumin 2.8 L Random Vancomycin 14.2 L Assessment and Plan (1) E coli bacteremia: Status: Acute Plan 77-year-old male with past medical history of CKD- unspecified, DILLON, history of GI bleed, hypertension, as well as dementia comes [facility] the [facility] with altered mental status and hypotension; found to have UTI along with new hepatic masses 1.Acute encephalopathy secondary to Gram-negative bacteremia -likely secondary to acute sepsis.... Resolving -Zosyn(4) -preliminary cultures with Gram-negative rods. .. E coli sensitive to ceftriaxone. Will adjust antibiotics -given persistent behavior will continue IV antibiotics pending repeat blood cultures 2.Sepsis -likely secondary to Gram-negative bacteremia -continue Zosyn; await formal culture identification 3.Transaminitis -slowly improving likely secondary to hepatic mass -GI recommends MRI of abdomen liver protocol however patient has ankle bracelet secondary to chronic dementia unit -discussed with facility; transfer patient back and they will remove bracelet and book outpatient MRI heparin subQ DNR DNI Requires ongoing hospitalization for IV antibiotics pending identification of Gram-negative bacteremia Quality Stroke Does the patient have a stroke diagnosis?: No VTE Prior VTE?: No VTE Risk Level:: Medical - moderate - high VTE Device Contraindication: Treatment Not Indicated VTE Drug Contraindication: N/A - Med Ordered
[2023-01-02] MEDS: cefTRIAXone sodium 1 GM in 0.9 % Sodium Chloride 50 ML IV (14:42)
[2023-01-02 15:35] VITALS: BP 135/61; PULSE 69; RESP 16; TEMP 36.7; O2SAT 92
[2023-01-02 19:34] VITALS: BP 127/74; PULSE 67; RESP 18; TEMP 36.2; O2SAT 95
[2023-01-02 23:22] VITALS: BP 138/68; PULSE 62; RESP 18; TEMP 36.3; O2SAT 94
[2023-01-03 03:46] VITALS: BP 114/57; PULSE 81; RESP 20; TEMP 36.9; O2SAT 94
[2023-01-03] MEDS: Omeprazole 20 MG CAPSULE.DR PO (05:24)
[2023-01-03] MEDS: Levothyroxine Sodium 50 MCG TABLET PO (05:24)
[2023-01-03 07:59] VITALS: BP 140/53; PULSE 70; RESP 20; TEMP 36.2; O2SAT 93
--- NOTE | 2023-01-03 12:54 | MHC.CM.PN ---
pt medically cleared for dc back to LTC at [facility] on memory care unit, cm contacted pt's Lili 12:46pm at number on file and Lili is agreeable to plan, [facility] for BLS transport
--- NOTE | 2023-01-03 13:54 | PM.DS ---
DS: Providers Provider Date of Service: 01/03/23 Date of admission: 12/30/22 00:12 Date of discharge: 01/03/23 Primary care physician: RUDI FISHER Consults: 12/30/22 06:23 Consult to Gastroenterology Routine Consulting Provider: Nica Jacob Reason for consultation: hepatic mass DS: Diagnosis Discharge Diagnosis (1) E coli bacteremia: Status: Acute (2) Sepsis: Status: Acute (3) Acute encephalopathy: Status: Acute (4) Liver mass: Status: Acute (5) Acute renal failure superimposed on chronic kidney disease: Status: Acute DS: Summary Hospital Course Hospital Course: 77-year-old male past medical history of hypertension, CKD, history of GI bleed, iron deficiency anemia, obstructive sleep apnea, dementia, comes into the hospital from [facility] with an episode of unresponsiveness. History is obtained mostly from ER physician as well as notes sent with the patient from the alf according to the notes sent in with the patient patient was found to have a low BP of 72/56 with a heart rate of 111, satting 83% on room air. Been having poor p.o. intake, unable to ambulate, has become significantly weak. ER Course On arrival to the ED patient is hemodynamically stable with a slightly soft blood pressure.Labs are significant for WBC count of 21.4, hemoglobin of 9.0, hematocrit 28.1, left shift, creatinine of 2.93, lactic acid of 2.1, AST of 2 6, ALT of 99, troponin of 27, BNP of 644, lipase of 318 with no previous for comparison.UA is positive for nitrites, leukocyte Estrace, WBC as well as urine bacteria Abdominal pelvic CT shows heterogeneous masslike enlargement of much of the right hepatic lobe and caudate lobe of the liver suspicious for neoplasm as well as evidence of consolidation in the lung which could reflect pneumonia. Hospital Course Patient admitted to telemetry and placed on vancomycin and Zosyn. Felix cultured in the ER. Seen in consultation by GI; recommended MRI liver protocol to evaluate hepatic masses. Attempts made to obtain MRI however patient has ankle brace it secondary to the dementia unit and could not be scanned. Initial blood cultures revealed 2/2 E coli sensitive to ceftriaxone. He received 5 days of IV ceftriaxone and subsequent cultures were unremarkable. At this point in time he is medically acceptable for discharge back to [facility] to complete a 14 day course of oral Ceftin. Of note on admission he did have acute on chronic kidney injury that resolved with volume repletion. Discussed with MRI; order will be sent with patient for outpatient MRI within the next 2 weeks. MRI understands this if cannot accommodate will give 1st available cancellation. He should follow-up with GI (Dr. Jacob) after MRI for further delineation of care. Time Attestation Discharge coordination time: Greater than 30 minutes Quality: Safe Use of Opioids Does Pt have an Active Cancer Diagnosis on the Problem List?: No Quality: Stroke Does the patient have a stroke diagnosis?: No Physical Exam Vital Signs: Vital Signs: Last Vital Signs Temp 97.2 F 01/03/23 07:59 Pulse 70 01/03/23 07:59 Resp 20 01/03/23 07:59 BP 140/53 H 01/03/23 07:59 Pulse Ox 93 01/03/23 07:59 O2 Del Method Room Air 01/03/23 07:59 BMI result Body Mass Index 31.0 Const: Other: No acute distress Resp: Other: Clear to auscultation bilaterally no rales rhonchi or wheezes Cardio: Other: No S4; positive S1-S2; no S3 murmurs rubs or gallops GI: Other: Soft nontender normoactive bowel sounds Extrem: Other: No edema bilaterally DS: Data Data Completed and Pending Labs on day of discharge: Preliminary micro results at discharge 01/01/23 13:56 Blood Culture - Preliminary Blood - Venous No growth after 24 hours. Discharge Plan Discharge Anticipated Discharge Date/Time: 01/03/23 13:49 Patient Disposition: Xfer LTC Discharge Diagnosis: Acute metabolic encephalopathy secondary to sepsis Referrals: [facility] [Outside] - 1 Week (RESUMPTION OF LTC, MEMORY CARE) RUDI FISHER [Primary Care Provider] - 1 Week Discharge Medications: New cefuroxime axetil 250 mg tablet 250 mg PO BID 14 Days Qty: 28 0RF Continued trazodone 50 mg tablet 50 mg PO BEDTIME sertraline 100 mg tablet 100 mg PO DAILY risperidone 0.25 mg tablet 0.25 mg PO DAILY amlodipine 2.5 mg tablet 2.5 mg PO DAILY levothyroxine 50 mcg tablet 50 mcg PO DAILY buspirone 10 mg tablet 10 mg PO TID omeprazole 20 mg capsule,delayed release(DR/EC) 20 mg PO DAILY risperidone 0.5 mg tablet 0.5 mg PO DAILY Discharge Orders: Discharge Order (Routine); Ordered 01/03/23 Ordered By: Juan Antonio Hendrix Diet: Advance to usual diet Activity on Discharge: As tolerated Stand Alone Forms: Patient Portal Discharge page Other Ambulatory Orders: MR abdomen wo/w con (Routine) Timeframe: 2 Weeks Facility: [facility] - Location: MRI Ordered By: Juan Antonio Hendrix Care Plan Goals: Complete course of Ceftin 250 b.i.d. times 14 days Health Concerns: Resume all pre-hospital medications and therapies Plan of Treatment: You need to book outpatient MRI to evaluate hepatic masses. Further plans based on forthcoming data as deemed appropriate by receiving facility Assessment: See discharge summary
[2023-01-03 15:32] VITALS: BP 124/58; PULSE 66; RESP 21; TEMP 36.7; O2SAT 93
--- NOTE | 2023-01-04 08:51 | P.CDIM_ITS ---
PROVIDER RESPONSE TEXT: To clarify, the appropriate diagnosis supported by the clinical indicators: Metabolic QUERY TEXT: PHYSICIAN'S DOCUMENTATION REQUEST Date of Query: 01/03/2023 09:13 AM EST Patient Name: Meng Chilel Admit Date: 12/30/2022 Dear Juan Antonio Hendrix, A review of the medical record indicates additional documentation may be needed. Please review below and update the documentation accordingly. Clinical Indicators: Progress notes: Acute encephalopathy likely secondary to sepsis and the UTI. IV antibiotics IV fluids monitor mentation Patient was hitting at staff, becoming combative. Based on the above, please further specify, in the Progress Notes, the known or suspected type of the documented encephalopathy: Metabolic Septic Toxic Toxic metabolic Hepatic (reported as hepatic failure and needs further specificity as to acute, subacute, or chronic) Other (explain) Clinically unable to determine (explain) Thank you, Rowan Holman, CCS, CDIS Use of terms such as suspected, likely, concern for, or probable (associated with a specific diagnosi s that is being evaluated, monitored, or treated as if it exists) are acceptable and can be coded in the inpatient se tting, when documented at the time of discharge. Please use your independent medical judgment in providing your response. THIS QUERY IS PART OF THE PERMANENT MEDICAL RECORD
--- NOTE | 2023-01-04 08:51 | P.CDIM_ITS ---
PROVIDER RESPONSE TEXT: To clarify, the appropriate diagnosis supported by the clinical indicators: Acute renal failure (with type, appropriate) on Chronic Kidney Disease (CKD) QUERY TEXT: PHYSICIAN'S DOCUMENTATION REQUEST Date of Query: 01/03/2023 09:20 AM EST Patient Name: Meng Chilel Admit Date: 12/30/2022 Dear Juan Antonio Hendrix, A review of the medical record indicates additional documentation may be needed. Please review below and update the documentation accordingly. Clinical Indicators: ED: Clinical impression - Acute kidney failure superimposed on CKD Cr 2.93/1.95 Bun 61/57 Gfr 21/34 Fluids Patient has not been drinking enough fluids, very weak, profusely sweating. Please clarify which of the following accurately represents the patient's renal status: Acute renal failure Acute renal failure (with type, appropriate) on Chronic Kidney Disease (CKD) CKD, please provide stage Other (explain) Clinically unable to determine (explain) Thank you, Rowan Holman, CCS, CDIS Use of terms such as suspected, likely, concern for, or probable (associated with a specific diagnosi s that is being evaluated, monitored, or treated as if it exists) are acceptable and can be coded in the inpatient se tting, when documented at the time of discharge. Please use your independent medical judgment in providing your response. THIS QUERY IS PART OF THE PERMANENT MEDICAL RECORD
== END 2023-01-03 18:13 | DRG 871 ==
LOC: HO.ED 22:28 → HO.EDOVER 12-30 00:19 → HO.IMC 12-30 01:52
PROVIDERS: Student in an Organized Health Care Education/Training Program; Admitting Provider Internal Medicine; Emergency Provider Internal Medicine; PCP Emergency Medicine; Visit Provider Hospitalist
DX: A41.51 Sepsis due to Escherichia coli [E. coli] (principal); G93.41 Metabolic encephalopathy; C22.0 Liver cell carcinoma; N17.9 Acute kidney failure, unspecified; F03.911 Unspecified dementia, unspecified severity, with agitation; N39.0 Urinary tract infection, site not specified; N18.9 Chronic kidney disease, unspecified; Z66 Do not resuscitate; E03.9 Hypothyroidism, unspecified; I12.9 Hypertensive chronic kidney disease with stage 1 through stage 4 chronic kidney disease, or unspecified chronic kidney disease; G47.33 Obstructive sleep apnea (adult) (pediatric); Z79.890 Hormone replacement therapy; Z79.899 Other long term (current) drug therapy
CPT/HCPCS: 36415; 71045; 74176; 80048; 80053; 80076; 80202; 81001; 81003; 82565; 82947; 83605; 83690; 83880; 84484; 85025; 85027; 85379; 87040; 87077; 87086; 87186; 87205; 93005; 99285; J0696; J1644; J2359; J2543; J3370; J7120

== ENCOUNTER → 2022-12-30 00:12 | Outpatient (BNV) | payer OTHER, MEDICAID, SELFPAY | PROVIDERS: Admitting Provider Internal Medicine; Emergency Provider Internal Medicine; Visit Provider Internal Medicine Gastroenterology | DX: R16.0 Hepatomegaly, not elsewhere classified (principal) | CPT/HCPCS: 99223 ==

== ENCOUNTER → 2022-12-30 00:12 | Outpatient (BNV) | payer OTHER, MEDICAID, SELFPAY | PROVIDERS: Admitting Provider Internal Medicine; Emergency Provider Internal Medicine; Visit Provider Internal Medicine | DX: A41.51 Sepsis due to Escherichia coli [E. coli] (principal); N17.9 Acute kidney failure, unspecified; N18.4 Chronic kidney disease, stage 4 (severe); G93.40 Encephalopathy, unspecified; R16.0 Hepatomegaly, not elsewhere classified | CPT/HCPCS: 99223; 99233; 99239; 99499 ==